=== PATIENT | female | born 1980 | race Caucasian/White ===

== ENCOUNTER 2019-04-16 13:21 | Emergency (ER) | payer OTHER, SELFPAY ==
[2019-04-16 13:14] VITALS: BP 91/59; PULSE 66; RESP 18; TEMP 36.8; O2SAT 100
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
--- NOTE | 2019-04-16 13:29 | DI.RAD_ITS ---
SYMPTOMS/DIAGNOSIS: LATERAL KNEE PAIN S/P FALL RIGHT KNEE: No fracture or joint effusion is seen. The joint spaces are well maintained. IMPRESSION: Negative right knee.
--- NOTE | 2019-04-16 13:54 | DI.VRAD_ITS ---
EXAM: XR Right Knee EXAM DATE/TIME: 04/16/2019 1:32 PM CLINICAL HISTORY: 39 years old, female; Other: Lateral knee pain, fall TECHNIQUE: Imaging protocol: XR Right knee. Views: 3 views. COMPARISON: No relevant prior studies available. FINDINGS: Bones/joints: Small joint effusion. No fracture or dislocation. Soft tissues: Unremarkable. IMPRESSION: No acute bony injury. Small joint effusion. Dictated and Authenticated by: Latrice Mccord MD. Ordering:ELLEN Frederick MD
[2019-04-16 14:24] VITALS: BP 100/45; PULSE 67; RESP 18; TEMP 36.7; O2SAT 100
== END 2019-04-16 13:42 | disposition home or self-care (01) ==
PROVIDERS: Emergency Provider Nurse Practitioner Family
DX: M25.561 Pain in right knee (principal)
CPT/HCPCS: 29505; 73562; 99283; 99282; E0114; L1810